=== PATIENT | male | born 1995 | race Caucasian/White ===

== ENCOUNTER 2017-09-23 02:02 | Inpatient (IN) | payer MEDICAID ==
[~2017-09-23] VITALS: Ht 182.9 cm; Wt 74.9 kg
[2017-09-23] MEDS ORDERED: LANTI SC (04:02)
[2017-09-23] MEDS ORDERED: LANTUS SOLOS100 U/M1 (04:03)
[2017-09-23] MEDS ORDERED: RELION NOVOL100 U/ML (04:04)
[2017-09-23 04:45] LABS: BASOPHIL % 0.2 % (0-2); PLATELET COUNT 398 x10^3mcL (130-400); RED CELL DISTRIBUTION WIDTH 13.9 % (11.5-14.5)
[2017-09-23 04:58] LABS: ALBUMIN 3.7 g/dL (3.4-5.0); ALKALINE PHOSPHATASE 92 U/L (46-116); ALT/SGPT 14 U/L (16-63); AST/SGOT 9 U/L (15-37); BILIRUBIN TOTAL 0.53 mg/dL (0.20-1.00); CALCIUM 8.3 mg/dL (8.5-10.1); CHLORIDE SERUM 97 mmol/L (98-107); CREATININE SERUM 1.3 mg/dL (0.7-1.3); GFR1 > 60 mL/min; GLUCOSE SERUM 412 mg/dL (74-106); POTASSIUM SERUM 4.4 mmol/L (3.5-5.1); SODIUM SERUM 133 mmol/L (136-145)
[2017-09-23 05:01] LABS: UA SPECIFIC GRAVITY >=1.030 (1.005-1.035); microscopic required? YES; urine erythrocyte 2+ (NEGATIVE)
[2017-09-23 05:44] LABS: FREE T4 0.87 ng/dL (0.76-1.46)
[2017-09-23 08:58] LABS: CHOLESTEROL/HDL RATIO 9.3; MAGNESIUM 2.2 mg/dL (1.8-2.4); PHOSPHOROUS 3.3 mg/dL (2.5-4.9)
[2017-09-23 09:04] LABS: CALCIUM 7.7 mg/dL (8.5-10.1); CHLORIDE SERUM 99 mmol/L (98-107); GLUCOSE SERUM 272 mg/dL (74-106); PHOSPHOROUS 3.4 mg/dL (2.5-4.9); POTASSIUM SERUM 3.8 mmol/L (3.5-5.1)
[2017-09-23 09:12] LABS: FREE T4 0.75 ng/dL (0.76-1.46)
[2017-09-23 09:15] LABS: FREE THYROXINE INDEX 1.6 ug/dL (1.4-4.5); T4(THYROXINE) 4.4 ug/dL (4.7-13.3)
[2017-09-23 09:22] LABS: CREATININE SERUM 1.1 mg/dL (0.7-1.3); GFR1 > 60 mL/min; SODIUM SERUM 133 mmol/L (136-145)
[2017-09-23 09:23] VITALS: BP 156/92
[2017-09-23 09:24] LABS: CARBON DIOXIDE < 5 mmol/L (21-32)
[2017-09-23 09:30] VITALS: Ht 182.9 cm; Wt 74.9 kg
[2017-09-23 09:59] LABS: T3 TOTAL 0.39 ng/mL
[2017-09-23 11:42] VITALS: BP 158/83
[2017-09-23 13:32] LABS: CARBON DIOXIDE 10.5 mmol/L (21-32); CHLORIDE SERUM 106 mmol/L (98-107); CREATININE SERUM 0.9 mg/dL (0.7-1.3); GFR1 > 60 mL/min; GLUCOSE SERUM 145 mg/dL (74-106); MAGNESIUM 1.8 mg/dL (1.8-2.4); PHOSPHOROUS 1.3 mg/dL (2.5-4.9); POTASSIUM SERUM 3.6 mmol/L (3.5-5.1); SODIUM SERUM 137 mmol/L (136-145)
[2017-09-23 15:16] VITALS: BP 120/71
[2017-09-23 16:41] LABS: CALCIUM 8.3 mg/dL (8.5-10.1); CARBON DIOXIDE 13.6 mmol/L (21-32); CHLORIDE SERUM 106 mmol/L (98-107); GFR1 > 60 mL/min; GLUCOSE SERUM 155 mg/dL (74-106); MAGNESIUM 1.9 mg/dL (1.8-2.4); PHOSPHOROUS 1.5 mg/dL (2.5-4.9); POTASSIUM SERUM 3.7 mmol/L (3.5-5.1); SODIUM SERUM 136 mmol/L (136-145)
[2017-09-23 21:38] LABS: CARBON DIOXIDE 18.2 mmol/L (21-32); CHLORIDE SERUM 108 mmol/L (98-107); CREATININE SERUM 1.1 mg/dL (0.7-1.3); GFR1 > 60 mL/min; GLUCOSE SERUM 142 mg/dL (74-106); MAGNESIUM 1.8 mg/dL (1.8-2.4); PHOSPHOROUS 1.3 mg/dL (2.5-4.9); SODIUM SERUM 140 mmol/L (136-145)
[2017-09-23 21:39] LABS: AMPHETAMINE QUAL UR NONE DETECTED (NEG <=1000)
[2017-09-23 21:40] LABS: POTASSIUM SERUM 2.9 mmol/L (3.5-5.1)
[2017-09-24 00:19] VITALS: BP 126/71
[2017-09-24 01:04] LABS: CALCIUM 8.5 mg/dL (8.5-10.1); CARBON DIOXIDE 20.6 mmol/L (21-32); CHLORIDE SERUM 104 mmol/L (98-107); GFR1 > 60 mL/min; GLUCOSE SERUM 131 mg/dL (74-106); MAGNESIUM 1.8 mg/dL (1.8-2.4); PHOSPHOROUS 1.4 mg/dL (2.5-4.9); SODIUM SERUM 138 mmol/L (136-145)
[2017-09-24 04:00] VITALS: BP 132/74
[2017-09-24 04:47] LABS: BASOPHIL % 0.4 % (0-2); PLATELET COUNT 239 x10^3mcL (130-400); RED CELL DISTRIBUTION WIDTH 13.7 % (11.5-14.5)
[2017-09-24 04:51] LABS: CALCIUM 8.6 mg/dL (8.5-10.1); CARBON DIOXIDE 20.3 mmol/L (21-32); CHLORIDE SERUM 103 mmol/L (98-107); CREATININE SERUM 0.8 mg/dL (0.7-1.3); GFR1 > 60 mL/min; GLUCOSE SERUM 125 mg/dL (74-106); MAGNESIUM 1.8 mg/dL (1.8-2.4); PHOSPHOROUS 1.1 mg/dL (2.5-4.9); SODIUM SERUM 134 mmol/L (136-145)
[2017-09-24 04:57] LABS: POTASSIUM SERUM 2.8 mmol/L (3.5-5.1)
[2017-09-24 08:00] VITALS: BP 119/68
[2017-09-24 09:52] LABS: CALCIUM 8.4 mg/dL (8.5-10.1); CARBON DIOXIDE 19.7 mmol/L (21-32); CHLORIDE SERUM 108 mmol/L (98-107); CREATININE SERUM 0.7 mg/dL (0.7-1.3); GFR1 > 60 mL/min; GLUCOSE SERUM 95 mg/dL (74-106); POTASSIUM SERUM 3.2 mmol/L (3.5-5.1); SODIUM SERUM 139 mmol/L (136-145)
[2017-09-24 12:00] VITALS: BP 112/67
[2017-09-24 16:00] VITALS: BP 114/58
[2017-09-24 20:33] VITALS: BP 128/75
[2017-09-25 05:30] VITALS: BP 112/44
[2017-09-25 06:55] LABS: CALCIUM 8.4 mg/dL (8.5-10.1); CARBON DIOXIDE 25.2 mmol/L (21-32); CHLORIDE SERUM 106 mmol/L (98-107); CREATININE SERUM 0.6 mg/dL (0.7-1.3); GFR1 > 60 mL/min; GLUCOSE SERUM 195 mg/dL (74-106); MAGNESIUM 1.9 mg/dL (1.8-2.4); PHOSPHOROUS 1.4 mg/dL (2.5-4.9); SODIUM SERUM 141 mmol/L (136-145)
[2017-09-25 06:57] LABS: BASOPHIL % 0.6 % (0-2); PLATELET COUNT 159 x10^3mcL (130-400); RED CELL DISTRIBUTION WIDTH 13.6 % (11.5-14.5)
[2017-09-25 07:08] LABS: POTASSIUM SERUM 2.8 mmol/L (3.5-5.1)
[2017-09-25 09:16] VITALS: BP 115/67
[2017-09-25] MEDS ORDERED: LANTUS100 U/ML SC ×3 (09:48→13:45)
[2017-09-25] MEDS ORDERED: KEFLEX500 M1 PO (09:52)
[2017-09-25] MEDS ORDERED: LAC PO (09:52)
[2017-09-25] MEDS ORDERED: NPHOS PO (09:53)
[2017-09-25 12:39] LABS: CALCIUM 8.1 mg/dL (8.5-10.1); CARBON DIOXIDE 25.9 mmol/L (21-32); CHLORIDE SERUM 106 mmol/L (98-107); CREATININE SERUM 0.7 mg/dL (0.7-1.3); GFR1 > 60 mL/min; GLUCOSE SERUM 228 mg/dL (74-106); POTASSIUM SERUM 3.2 mmol/L (3.5-5.1); SODIUM SERUM 141 mmol/L (136-145)
[2017-09-25 12:59] VITALS: BP 112/64
[2017-09-25 13:43] VITALS: BP 112/64
[2017-09-25] MEDS ORDERED: K-PHOS NEUTRAL1 TAB PO (15:36)
[2017-09-25 16:46] VITALS: BP 107/71
== END 2017-09-25 19:54 | disposition home or self-care (01) | DRG 420 ==
LOC: ED 02:02 → IC 05:23 → DU 05:23 → IC 08:22 → DU 09-24 17:25
PROVIDERS: Emergency Medicine; Family Medicine; Student in an Organized Health Care Education/Training Program
DX: E10.10 Type 1 diabetes mellitus with ketoacidosis without coma (principal); J96.01 Acute respiratory failure with hypoxia; N17.0 Acute kidney failure with tubular necrosis; E78.2 Mixed hyperlipidemia; E87.6 Hypokalemia; E83.39 Other disorders of phosphorus metabolism; E83.51 Hypocalcemia; E10.65 Type 1 diabetes mellitus with hyperglycemia; E03.9 Hypothyroidism, unspecified; R31.9 Hematuria, unspecified; Z83.3 Family history of diabetes mellitus; Z68.25 Body mass index [BMI] 25.0-25.9, adult; Z23 Encounter for immunization
CPT/HCPCS: 36600; 82962; 83880; 84439; 87804; 90658; J0696; J1815; J2405; J3480; J3490; J7030; J7040; Q0092